=== PATIENT | female | born 1990 | race Caucasian/White ===

== ENCOUNTER 2024-03-03 06:12 | Day surgery (SDC) | payer BC ==
[2024-03-01 16:23] LABS: BASOPHILS % (AUTO) 0.6 % (0.0-2.0); EOSINOPHILS # (AUTO) 0.1 K/uL (0.0-0.4); EOSINOPHILS % (AUTO) 1.6 % (0.0-4.0); HEMATOCRIT 41.5 % (36-48); HEMOGLOBIN 14.2 g/dL (12.0-16.0); LYMPHOCYTES # (AUTO) 2.5 K/uL (1.0-5.5); LYMPHOCYTES % (AUTO) 41.1 % (20.5-51.5); MEAN CORPUSCULAR HEMOGLOBIN 29 pg (27-31); MEAN CORPUSCULAR HGB CONC 34 % (32-36); MEAN CORPUSCULAR VOLUME 86 fL (79.0-98.0); MONOCYTES # (AUTO) 0.5 K/uL (0.0-1.0); NEUTROPHILS % (AUTO) 48.7 % (40.0-70.0); PLATELET COUNT (AUTO) 348 K/uL (130-430); RED BLOOD CELL COUNT(AUTO) 4.84 MIL/uL (4.2-6.2); RED CELL DISTRIBUTION WIDTH 13.2 % (9.0-15.0); WHITE BLOOD COUNT (AUTO) 6.2 K/uL (4.8-10.8)
[2024-03-01 16:26] LABS: HCG,QUAL RESULT NEGATIVE (NEGATIVE)
[2024-03-01 16:49] LABS: ALBUMIN 3.9 g/dL (3.4-4.8); CALCIUM 9.2 mg/dL (8.4-11.0); CREATININE 0.64 mg/dL (0.55-1.30); POTASSIUM 3.6 mmol/L (3.5-5.1); TOTAL BILIRUBIN 0.5 mg/dL (0.0-1.0); TOTAL PROTEIN, SERUM 7.7 g/dL (6.4-8.3)
[~2024-03-03] VITALS: Ht 167.6 cm; Wt 80.3 kg
[2024-03-03 06:59] VITALS: O2SAT 97
[2024-03-03] MEDS ORDERED: DEXAMETHASONE SOD PHOSPHATE 4 MG/ML VIAL ONE (07:38)
[2024-03-03] MEDS ORDERED: HYDROmorphone 1 MG/ML INJ. CARTRIDGE IVP PRN (08:30)
[2024-03-03] MEDS ORDERED: ONDANSETRON HCL 4 MG/2 ML VIAL IVP PRN (08:30)
[2024-03-03] MEDS ORDERED: ACETAMINOPHEN I.V. 1000 MG 100 ML IV ONE (08:30)
[2024-03-03] MEDS ORDERED: MIDAZOLAM HCL 5 MG/5 ML VIAL IVP PRN (08:30)
[2024-03-03] MEDS ORDERED: METOCLOPRAMIDE HCL 10 MG/2 ML VIAL IVP PRN (08:30)
[2024-03-03] MEDS ORDERED: IBUPROFEN 600 MG TABLET PO ONE (11:15)
[2024-03-03 12:42] VITALS: BP_SYST 117; PULSE 71; RESP 17
== END 2024-03-03 10:57 | disposition home or self-care (01) ==
LOC: SDS 06:12 → SMU 06:13 → SDS 10:57
PROVIDERS: ATTEND Surgery
DX: K60.3 Anal fistula (principal); F41.9 Anxiety disorder, unspecified; K60.1 Chronic anal fissure; K64.8 Other hemorrhoids
CPT/HCPCS: 80053; 84703; 85025; 87081; 36415; 46275; 88304; J2710; J3490 ×2; J1100; J1885; J3465; J2405; J2704; J0330; J3010; J7120